=== PATIENT | male | born 1975 | race African-American/Black ===

== ENCOUNTER 2021-06-07 04:44 | Inpatient (IN) | payer SELFPAY ==
[2021-06-07] MEDS ORDERED: Ringers Lactate 1,000 ML IV ONE (05:27)
[2021-06-07 05:41] LABS: Absolute Lymphocytes (CBC) 1.4 K/uL (0.7-4.9); Hematocrit 40.5 % (39.6-49.0); Lymphocytes % 18.4 % (15.3-44.8); MPV 7.5 fL (7.6-11.3); RBC Red Blood Cell Count 4.95 M/uL (4.33-5.43)
[2021-06-07 05:56] LABS: Potassium 3.8 mmol/L (3.5-5.1)
[2021-06-07 06:56] LABS: Urine Blood Trace-intact (Negative); Urine Glucose Negative (Negative); Urine Protein Negative (Negative); Urine Specific Gravity 1.015 (1.005-1.030); Urine pH 5.5 (5.0-7.0)
[2021-06-07 07:28] LABS: Barbiturates NEGATIVE (NEGATIVE); Benzodiazepines NEGATIVE (NEGATIVE); Cocaine POSITIVE (NEGATIVE); METHAMPHETAM NEGATIVE (NEGATIVE); Methadone NEGATIVE (NEGATIVE); Opiates NEGATIVE (NEGATIVE); Phencyclidine NEGATIVE (NEGATIVE); THC Cannibis NEGATIVE (NEGATIVE)
[2021-06-07 09:07] LABS: Thyroid Stimulating Hormone 1.31 uIU/mL (0.360-3.740); Troponin High Sensitivity 13.8 pg/mL (<58.9)
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
--- NOTE | 2021-06-07 09:14 | RAD REPORT ---
EXAM DESCRIPTION: RAD - Chest Single View - 06/07/2021 8:44 am CLINICAL HISTORY: Cough;Dyspnea COMPARISON: Chest Single View dated 10/30/2020No comparisons FINDINGS: Lines: None. Lungs: Bilateral pulmonary opacities with prominence of the pulmonary vasculature. Pleural: No significant pleural effusions or pneumothorax. Cardiac: The heart size is within normal limits. Bones: No acute fractures. Other: IMPRESSION: Widespread pulmonary opacities may represent edema and/or multifocal pneumonia.
[2021-06-07] MEDS ORDERED: NITROGLYCERIN 1 GM PKT TD ONE (09:45)
[2021-06-07] MEDS ORDERED: FUROSEMIDE 40 MG/4 ML VIAL ONE (09:45)
[2021-06-07] MEDS ORDERED: METHYLPREDNISOLONE 125 MG INJ ONE (09:45)
[2021-06-07] MEDS ORDERED: NA CHLORIDE 0.9% 100 ML IV ONE (09:46)
[2021-06-07] MEDS ORDERED: PIPERACIL/TAZO 3.375 GM VIAL IV ONE (09:46)
[2021-06-07 09:55] LABS: Arterial Blood Carboxyhemoglob 0.9 % (0-1.5); Blood Gas Oxyhemoglobin 95.5 % (94-97); Blood O2 Saturation 97.5 % (92-98.5)
[2021-06-07] MEDS ORDERED: IPRATROPIUM BROM 0.5MG/2.5ML ONE ×2 (10:10→14:38)
[2021-06-07] MEDS ORDERED: LEVALBUTEROL 1.25 MG/3 ML NEB ONE (10:10)
[2021-06-07 11:27] LABS: SARS-COV-2 RT PCR NEGATIVE (NEGATIVE)
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
[2021-06-07] MEDS: IPRATROPIUM BROM 0.5MG/2.5ML NEB SCH ×2 (14:35→20:00)
[2021-06-07] MEDS: ALBUTEROL 2.5 MG/3 ML NEB SOL NEB SCH ×2 (14:35→20:00)
[2021-06-07] MEDS ORDERED: ALBUTEROL 2.5 MG/3 ML NEB SOL ONE (14:37)
[2021-06-07] MEDS: METHYLPREDNISOLONE 125 MG INJ IV SCH (18:42)
[2021-06-07] MEDS: ONDANSETRON 4 MG/2 ML VIAL IV PRN (22:36)
[2021-06-07] MEDS: MORPHINE 2 MG/ML SYR IV PRN (22:36)
[2021-06-08] MEDS ORDERED: HYDROMORPHONE HCL 1 MG/ML INJ IV ONE (00:30)
[2021-06-08] MEDS: METHYLPREDNISOLONE 125 MG INJ IV SCH ×5 (00:33→23:52)
[2021-06-08] MEDS: IPRATROPIUM BROM 0.5MG/2.5ML NEB SCH ×4 (01:40→19:54)
[2021-06-08] MEDS: ALBUTEROL 2.5 MG/3 ML NEB SOL NEB SCH ×4 (01:40→19:54)
[2021-06-08 04:34] LABS: Absolute Lymphocytes (CBC) 0.4 K/uL (0.7-4.9); Lymphocytes % 3.5 % (15.3-44.8); MPV 7.6 fL (7.6-11.3); RBC Red Blood Cell Count 5.15 M/uL (4.33-5.43)
[2021-06-08 04:43] LABS: Protime INR 1.1
[2021-06-08 05:04] LABS: Albumin 3.6 g/dL (3.4-5.0); Bilirubin Total 0.3 mg/dL (0.2-1.0); Protein, Total 8.4 g/dL (6.4-8.2)
[2021-06-08 05:44] LABS: Potassium 4.9 mmol/L (3.5-5.1)
--- NOTE | 2021-06-08 07:42 | RAD REPORT ---
EXAM DESCRIPTION: RAD - Chest Single View - 06/08/2021 5:08 am CLINICAL HISTORY: CHF COMPARISON: Chest Single View dated 06/07/2021 FINDINGS: Lines: None. Lungs: Lung volumes are improved. Edema has improved Pleural: No significant pleural effusions or pneumothorax. Cardiac: The heart size is within normal limits. Bones: No acute fractures. Other: IMPRESSION: Mild improved lung volumes and edema compared with 06/07/2021.
[2021-06-08 10:44] LABS: Blood Gas Oxyhemoglobin 89.4 % (94-97); Blood O2 Saturation 91.7 % (92-98.5)
[2021-06-08] MEDS: MORPHINE 2 MG/ML SYR IV PRN ×2 (15:13→20:48)
[2021-06-08] MEDS: ONDANSETRON 4 MG/2 ML VIAL IV PRN (20:48)
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
--- NOTE | 2021-06-09 01:35 | P.PN ---
Subjective Date of Service: 06/08/21 Subjective: No new changes, No C/O voiced, Improving Review of Systems 10-point ROS is otherwise unremarkable Physical Examination - Vital Signs Temperature: 97.8 F Blood Pressure: 136/84 Pulse: 85 Respirations: 16 Pulse Ox (%): 96 - Physical Exam General: Alert, In no apparent distress, Oriented x3, Other (Obtunded but following commands more awake) HEENT: Atraumatic, PERRLA, EOMI Respiratory: Diminished, Rhonchi/gurgles Cardiovascular: Regular rate/rhythm, Normal S1 S2, No murmurs Gastrointestinal: Normal bowel sounds, Soft and benign, Non-distended, No tenderness Musculoskeletal: No clubbing, No swelling, No tenderness Neurological: Sensation intact, Cranial nerves 3-12 intact - Studies Medications List Reviewed: Yes Assessment & Plan - Problems (Diagnosis) (1) Shortness of breath Current Visit: Yes Status: Acute (2) Cocaine abuse Current Visit: Yes Status: Acute (3) Obesity hypoventilation syndrome Current Visit: Yes Status: Acute (4) Aspiration pneumonia Current Visit: Yes Status: Acute (5) Morbid obesity Current Visit: Yes Status: Acute - Plan Plan: Continue plan of care as mentioned below: 1. Continue with IV antibiotics 2. Awaiting sputum and blood culture 3. Repeat chest x-ray 4. CT scan of the chest with questionable aspiration pneumonia 5. Pulmonary consultation 6. Continue with nebs as needed 7. O2 per protocol 8. Continue with gentle hydration 9. Repeat labs including CBC and renal function in a.m. 10. GI and DVT prophylaxis Discharge Plan: Home Plan to discharge in: Greater than 2 days - Advance Directives Does patient have a Living Will: No Does patient have a Durable POA for Healthcare: No - Code Status/Comfort Care Code Status: Full Code Critical Care: Yes Time Spent Managing PTS Care (In Minutes): 35
[2021-06-09] MEDS: ALBUTEROL 2.5 MG/3 ML NEB SOL NEB SCH ×2 (02:10→08:00)
[2021-06-09] MEDS: IPRATROPIUM BROM 0.5MG/2.5ML NEB SCH ×2 (02:10→08:00)
[2021-06-09 04:45] VITALS: BMI 35.9
[2021-06-09 05:00] LABS: Absolute Lymphocytes (CBC) 0.4 K/uL (0.7-4.9); Hematocrit 40.1 % (39.6-49.0); Lymphocytes % 3.1 % (15.3-44.8); MPV 7.9 fL (7.6-11.3); RBC Red Blood Cell Count 4.82 M/uL (4.33-5.43)
[2021-06-09] MEDS: METHYLPREDNISOLONE 125 MG INJ IV SCH (05:07)
[2021-06-09 05:28] LABS: Albumin 3.3 g/dL (3.4-5.0); Bilirubin Total 0.3 mg/dL (0.2-1.0); Magnesium 2.6 mg/dL (1.8-2.4); Potassium 4.6 mmol/L (3.5-5.1); Protein, Total 7.8 g/dL (6.4-8.2)
[2021-06-09] MEDS ORDERED: PIPER TAZO 3.375 GM in NA CHLORIDE 0.9% 100 ML IV SCH (06:00)
[2021-06-09 06:57] LABS: Blood Morphology Comment NOT SEEN (NOT SEEN); Platelet Estimate ADEQ
--- NOTE | 2021-06-09 07:28 | RAD REPORT ---
EXAM DESCRIPTION: RAD - Chest Single View - 06/09/2021 6:41 am CLINICAL HISTORY: pneumonia COMPARISON: Chest Single View dated 06/08/2021; Chest Single View dated 06/07/2021 FINDINGS: Lines: None. Lungs: Overall similar widespread pulmonary opacities. Pleural: No significant pleural effusions or pneumothorax. Cardiac: The heart size is within normal limits. Bones: No acute fractures. Other: IMPRESSION: Widespread pulmonary opacities are overall unchanged compared with the prior 2 days radi ographs.
--- NOTE | 2021-06-09 08:06 | P.PN ---
Subjective Date of Service: 06/09/21 Chief Complaint: Respiratory distress Subjective: No new changes, Improving Review of Systems 10-point ROS is otherwise unremarkable Physical Examination - Vital Signs Temperature: 97.1 F Blood Pressure: 141/79 Pulse: 80 Respirations: 16 Pulse Ox (%): 100 - Physical Exam General: Alert, Oriented x3 HEENT: Atraumatic, Normocephalic Neck: Supple Respiratory: Clear to auscultation bilaterally Cardiovascular: Regular rate/rhythm, Normal S1 S2 Gastrointestinal: Soft and benign Neurological: Normal speech, Cranial nerves 3-12 intact - Studies Medications List Reviewed: Yes Assessment And Plan - Plan Hypercapneic resp failure Morbid obesity Sleep apnea Suspected aspiration pneumonia Plan: Presently is much improved on BiPAP. We will continue nightly BiPAP. We have encouraged him to seek help from pulmonary physician for management of his obstructive sleep apnea and to have his CPAP adjusted to achieve adequate control of respiratory failure while sleeping. We will continue antibiotic therapy for aspiration related. Sputum culture pending We will follow lab and symptomatology closely. Okay to transfer patient to the acute medicine floor with telemetry. - Code Status/Comfort Care Code Status: Full Code
[2021-06-09] MEDS ORDERED: IPRATROPIUM BROM 0.5MG/2.5ML NEB PRN (08:33)
[2021-06-09] MEDS: ARFORMOTEROL TARTRATE 15 MCG/2 ML VIAL.NEB NEB SCH ×2 (08:35→20:20)
[2021-06-09 10:05] LABS: Arterial Blood Carboxyhemoglob 1.1 % (0-1.5); Blood Gas Oxyhemoglobin 86.3 % (94-97); Blood O2 Saturation 88.7 % (92-98.5)
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
[2021-06-09] MEDS: ACETAMINOPHEN 500 MG TAB PO PRN (13:00)
[2021-06-09] MEDS: predniSONE 20 MG TAB PO SCH ×2 (13:12→20:00)
[2021-06-09] MEDS: AMOX/K CLAV 875 MG TAB PO SCH ×2 (13:12→20:00)
[2021-06-09] MEDS: DULERA 200/5 (MOMETASONE/FORMOTEROL) INHALER IH SCH (20:00)
[2021-06-09] MEDS ORDERED: DULERA 200/5 (MOMETASONE/FORMOTEROL) INHALER IH SCH (21:00)
--- NOTE | 2021-06-10 07:18 | P.PN ---
Subjective Date of Service: 06/11/21 Chief Complaint: Respiratory distress Subjective: No new changes, Improving Physical Examination - Vital Signs Temperature: 98.3 F Blood Pressure: 139/88 Pulse: 82 Respirations: 16 Pulse Ox (%): 98 - Physical Exam General: Alert, Oriented x3 - Studies Medications List Reviewed: Yes Assessment And Plan - Plan Hypercapneic resp failure Morbid obesity Sleep apnea Suspected aspiration pneumonia Patient: Plan: Presently is much improved on BiPAP. We will continue nightly BiPAP. We have encouraged him to seek help from pulmonary physician for management of his obstructive sleep apnea and to have his CPAP adjusted to achieve adequate control of respiratory failure while sleeping. We will continue antibiotic therapy for aspiration related. Sputum culture pending We will follow lab and symptomatology closely.
[2021-06-10] MEDS: ARFORMOTEROL TARTRATE 15 MCG/2 ML VIAL.NEB NEB SCH ×2 (08:53→19:55)
[2021-06-10] MEDS: AMOX/K CLAV 875 MG TAB PO SCH ×2 (09:03→20:32)
[2021-06-10] MEDS: predniSONE 20 MG TAB PO SCH ×2 (09:03→20:32)
[2021-06-10] MEDS: ACETAMINOPHEN 500 MG TAB PO PRN ×2 (09:04→14:38)
[2021-06-10] MEDS: DULERA 200/5 (MOMETASONE/FORMOTEROL) INHALER IH SCH ×2 (09:05→20:33)
--- NOTE | 2021-06-10 12:39 | EKG ---
Test Date: 2021-06-07 Test Time: 09:06:44 Blower Operator: DESHAUN MEASUREMENT RESULTS: Intervals: Rate: 93 IA: 206 QRSD: 84 QT: 350 QTc: 435 Starke: P: 73 IA: 206 QRS: 78 T: 9 INTERPRETIVE STATEMENTS: Normal sinus rhythm Nonspecific ST abnormality Abnormal ECG No previous ECG available for comparison Electronically Signed On 06-10-21 12:33:48 CDT by Capo Portillo
[2021-06-10] MEDS: LOSARTAN/HCTZ 50-12.5 PO SCH (14:38)
[2021-06-11] MEDS: ARFORMOTEROL TARTRATE 15 MCG/2 ML VIAL.NEB NEB SCH ×2 (08:02→20:25)
--- NOTE | 2021-06-11 08:08 | P.PN ---
Subjective Date of Service: 06/11/21 Chief Complaint: Respiratory distress Subjective: No new changes, Improving (Now off supplemental oxygen.) Physical Examination - Vital Signs Temperature: 98.4 F Blood Pressure: 165/87 Pulse: 86 Respirations: 20 Pulse Ox (%): 100 - Physical Exam General: Alert, Oriented x3, Cooperative HEENT: Normocephalic Respiratory: Normal air movement Cardiovascular: Regular rate/rhythm, Normal S1 S2 Gastrointestinal: Soft and benign Neurological: Normal speech, Normal strength at 5/5 x4 extr, Cranial nerves 3-12 intact - Studies Medications List Reviewed: Yes Assessment And Plan - Plan Hypercapneic resp failure Morbid obesity Sleep apnea Suspected aspiration pneumonia Bacteremia. Plan: Has improved symptomatology. His blood culture grew gram-positive cocci in clusters raising concern. He does have elevated white cell and there is concern for possible underlying sepsis though he does not have hypotension.- We will repeat CBC. We will follow symptomatology closely. For now we will continue breathing treatments pending further review.
--- NOTE | 2021-06-11 08:12 | ECHO ---
HEIGHT: 6 ft 1 in WEIGHT: 272 lb 8 oz DATE OF STUDY: 06/10/[address]: Godwin Escalante MD 2-DIMENSIONAL: YES M.MODE: YES DOPPLER: YES COLOR FLOW: YES TDS: NO PORTABLE: NO DEFINITY: NO BUBBLE STUDY: NO DIAGNOSIS: RESPIRATORY FAILURE CARDIAC HISTORY: CATHERIZATION: SURGERY: PROSTHETIC VALVE: PACEMAKER: MEASUREMENTS (cm) DIASTOLIC (NORMALS) SYSTOLIC (NORMALS) IVSd 1.3 (0.6-1.2) LA Diam 3.4 (1.9-4.0) LVEF 67% LVIDd 4.0 (3.5-5.7) LVIDs 2.5 (2.0-3.5) %FS 37% LVPWd 1.4 (0.6-1.2) Ao Diam 2.9 (2.0-3.7) 2 DIMENSIONAL ASSESSMENT: RIGHT ATRIUM: NORMAL LEFT ATRIUM: NORMAL RIGHT VENTRICLE: NORMAL LEFT VENTRICLE: LEFT VENTRICULAR HYPERTROPHY TRICUSPID VALVE: NORMAL MITRAL VALVE: NORMAL PULMONIC VALVE: NORMAL AORTIC VALVE: NORMAL PERICARDIAL EFFUSION: NONE AORTIC ROOT: NORMAL LEFT VENTRICULAR WALL MOTION: NORMAL. DOPPLER/COLOR FLOW: NORMAL. COMMENTS: MILD LEFT VENTRICULAR HYPERTROPHY. NORMAL LEFT VENTRICULAR EJECTION FRACTION. NO WALL MOTION ABNORMALITY. NO EFFUSION. TECHNOLOGIST: SHOAIB SCHWARZ
[2021-06-11] MEDS: predniSONE 20 MG TAB PO SCH ×2 (09:04→20:11)
[2021-06-11] MEDS: AMOX/K CLAV 875 MG TAB PO SCH ×2 (09:04→20:11)
[2021-06-11] MEDS: LOSARTAN/HCTZ 50-12.5 PO SCH (09:04)
[2021-06-11] MEDS: ENOXAPARIN 40 MG/0.4 ML SQ SCH (09:05)
[2021-06-11] MEDS: DULERA 200/5 (MOMETASONE/FORMOTEROL) INHALER IH SCH ×2 (09:09→20:11)
[2021-06-11 14:48] LABS: Absolute Lymphocytes (CBC) 0.9 K/uL (0.7-4.9); Hematocrit 40.2 % (39.6-49.0); Lymphocytes % 8.1 % (15.3-44.8); MPV 7.5 fL (7.6-11.3); RBC Red Blood Cell Count 4.99 M/uL (4.33-5.43)
[2021-06-11] MEDS: ACETAMINOPHEN 500 MG TAB PO PRN (20:10)
[2021-06-12] MEDS: ARFORMOTEROL TARTRATE 15 MCG/2 ML VIAL.NEB NEB SCH (08:01)
[2021-06-12 09:11] VITALS: O2SAT 97
[2021-06-12] MEDS: DULERA 200/5 (MOMETASONE/FORMOTEROL) INHALER IH SCH (09:24)
[2021-06-12] MEDS: AMOX/K CLAV 875 MG TAB PO SCH (09:25)
[2021-06-12] MEDS: LOSARTAN/HCTZ 50-12.5 PO SCH (09:25)
[2021-06-12] MEDS: ACETAMINOPHEN 500 MG TAB PO PRN (09:26)
[2021-06-12] MEDS: predniSONE 20 MG TAB PO SCH (09:26)
[2021-06-12] MEDS: ENOXAPARIN 40 MG/0.4 ML SQ SCH (09:26)
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
[2021-06-12 12:17] VITALS: BP 147/85; TEMP 97.1
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
== END 2021-06-12 14:20 | disposition home or self-care (01) | DRG 177 ==
LOC: ER 04:44 → ERHOLD 12:43 → 2ND 13:56 → 3RD-ICU 15:56 → OBSVTOIN 18:07 → 2ND 06-09 21:03
PROVIDERS: ADMIT Internal Medicine Nephrology; ATTEND Hospitalist
PROC: 5A09357 Assistance with Respiratory Ventilation, Less than 24 Consecutive Hours, Continuous Positive Airway Pressure (ICD-10-PCS; principal; 2021-06-07)
DX: J69.0 Pneumonitis due to inhalation of food and vomit (principal); J96.02 Acute respiratory failure with hypercapnia; J96.01 Acute respiratory failure with hypoxia; I47.2 Ventricular tachycardia; E66.01 Morbid (severe) obesity due to excess calories; Z68.36 Body mass index [BMI] 36.0-36.9, adult; I10 Essential (primary) hypertension; F14.10 Cocaine abuse, uncomplicated; G47.33 Obstructive sleep apnea (adult) (pediatric); Z20.822 Contact with and (suspected) exposure to COVID-19
CPT/HCPCS: 0241U; 36415; 51702; 70450; 71045; 71250; 71260; 72125; 74177; 80048; 80053; 80307; 80320; 81003; 82805; 82947; 83605; 83735; 83880; 84145; 84443; 84484; 85025; 85610; 85730; 86850; 86900; 86901; 87040; 87205; 93005; 93306; 94640; 94660; 94760; 96374; 96375; 99285; G0378; J1170; J1650; J1940; J2270; J2405; J2543; J2930; J3535; J7120; J7512; J7605; Q9967